=== PATIENT | female | born 1955 | race Caucasian/White ===

== ENCOUNTER 2016-08-15 14:33 | Emergency (ER) | payer OTHER ==
[~2016-08-15] VITALS: Ht 156.2 cm; Wt 72.9 kg
[2016-08-15 14:36] VITALS: TEMP 36.9; Ht 156.2 cm; Wt 72.9 kg
[2016-08-15] MEDS ORDERED: MECLIZINE HCL 25 MG TAB PO STA (14:44)
[2016-08-15] MEDS ORDERED: SODIUM CHLORIDE 0.9% 1000ML 1,000 ML IV STA (14:44)
[2016-08-15] MEDS ORDERED: ATV/1 PO (15:10)
[2016-08-15] MEDS ORDERED: MULT-513 PO (15:10)
[2016-08-15] MEDS ORDERED: NAPR1TAB9 PO (15:10)
[2016-08-15 15:13] LABS: BASO % 0.3 %; BASO ABS # 0.02 K/uL (0-0.2); COMPLETE YES; EOS % 4.3 %; HEMATOCRIT 42.2 % (37-47); IG% 0.2 %; LYMPH % 37.8 %; LYMPH ABS # 2.29 K/uL (1.2-3.4); MEAN CORPUSCULAR HEMOGLOBIN 34.5 pg (25-34); MEAN CORPUSCULAR HGB CONC 35.5 g/dl (32-36); MEAN PLATELET VOLUME 9.4 fL (7.4-10.4); MONO % 7.1 %; NEUT % 50.3 %; PLATELET COUNT 226 K/uL (130-400); RED BLOOD COUNT 4.35 M/uL (4.2-5.4); WHITE BLOOD COUNT 6.06 K/uL (4.8-10.8)
--- NOTE | 2016-08-15 15:14 | DIAGNOSTIC IMAGING REPORT ---
CHEST ONE VIEW PORTABLE CLINICAL HISTORY: Altered mental status. Weakness. COMPARISON STUDY: Chest radiograph September 27, 2012. FINDINGS: Lung volumes are normal. There is no consolidation to suggest pneumonia. Mild left basilar opacity is suggestive of atelectasis. There is no evidence of pulmonary edema. Cardiomediastinal silhouette is normal. IMPRESSION: No acute cardiopulmonary findings. Electronically signed by: Darvin Rodríguez M.D. 08/15/2016 3:12 PM Dictated Date/Time: 08/15/2016 3:11 PM
[2016-08-15 15:20] LABS: URINE APPEARANCE CLEAR (CLEAR); URINE BILIRUBIN NEG (NEG); URINE COLOR YELLOW; URINE EPITHELIAL CELL AUTO 0-5 /lpf (0-5); URINE NITRITE NEG (NEG); URINE PH 7.5 (4.5-7.5); URINE SPECIFIC GRAVITY 1.004 (1.000-1.030); UROBILINOGEN NEG (NEG); ZZUR CULT IF INDIC CLEAN CATCH NO
--- NOTE | 2016-08-15 15:23 | DIAGNOSTIC IMAGING REPORT ---
CT OF THE HEAD WITHOUT CONTRAST CLINICAL HISTORY: Altered mental status. Weakness. Dizziness. COMPARISON STUDY: Head CT September 06, 2013 and MRI of the brain December 08, 2007. CT DOSE: 537.48 mGy.cm TECHNIQUE: Helical axial images of the head were obtained without IV contrast. Automated exposure control was utilized for the study. FINDINGS: No acute intracranial hemorrhage, midline shift or mass effect is present. Ventricular system is normal. The basilar cisterns are patent. No extra-axial collections are present. Scattered white matter hypodensities are probably old. There are no findings to suggest acute dural sinus thrombosis or acute territorial infarct. There is minimal mucosal thickening of the ethmoid sinuses. Mastoid air cells are clear. There are no calvarial abnormalities. IMPRESSION: 1. No acute intracranial hemorrhage or mass effect. 2. Scattered nonspecific white matter hypodensities. The majority of these were present on prior exams. A few of these are age-indeterminate but likely old. Electronically signed by: Darvin Rodríguez M.D. 08/15/2016 3:21 PM Dictated Date/Time: 08/15/2016 3:15 PM
[2016-08-15 15:24] LABS: MANUAL MICROSCOPIC REQUIRED? NO; REVIEW REQ? NO
[2016-08-15 15:32] LABS: ALT/SGPT 22 U/L (12-78); AST/SGOT 17 U/L (15-37); BLOOD UREA NITROGEN 14 mg/dl (7-18); BUN/CREATININE RATIO 17.8 (10-20); CALCIUM 8.9 mg/dl (8.5-10.1); CARBON DIOXIDE 27 mmol/L (21-32); CHLORIDE 111 mmol/L (98-107); CREATININE 0.76 mg/dl (0.60-1.20); GLUCOSE 108 mg/dl (70-99); MAGNESIUM 2.3 mg/dl (1.8-2.4); POTASSIUM 3.7 mmol/L (3.5-5.1); SODIUM 145 mmol/L (136-145)
[2016-08-15 15:33] LABS: PROTHROMBIN TIME (PATIENT) 10.6 SECONDS (9.0-12.0)
[2016-08-15 15:40] LABS: ALKALINE PHOSPHATASE 75 U/L (45-117); CKMB/CK RATIO 1.9 (0-3.0)
--- NOTE | 2016-08-15 16:35 | DIAGNOSTIC IMAGING REPORT ---
CAROTID ARTERY ULTRASOUND CLINICAL HISTORY: Dizziness. COMPARISON STUDY: Carotid ultrasound December 08, 2007 and CTA of the neck September 06, 2013. TECHNIQUE: Real-time, grayscale, and color Doppler sonography of the carotid and vertebral arteries was performed. Images were viewed in the transverse and longitudinal planes. FINDINGS: There is minimal atherosclerotic plaque. Velocity measurements are listed below. COMMON CAROTID PEAK SYSTOLIC VELOCITY (CM/S): RIGHT 112 LEFT 118 ICA PEAK SYSTOLIC VELOCITY (CM/S): RIGHT 64 LEFT 57 The systolic ratios between the internal to common carotid arteries were normal. Antegrade flow is seen in the vertebral arteries. The external carotid arteries are patent. Blood pressure in the right arm measured 154/84. Blood pressure in the left arm measured 159/83. Incidental note was made of a few cystic benign-appearing right lobe thyroid nodules. IMPRESSION: No evidence of a hemodynamically significant stenosis. Electronically signed by: Darvin Rodríguez M.D. 08/15/2016 4:33 PM Dictated Date/Time: 08/15/2016 4:31 PM
--- NOTE | 2016-08-15 16:53 | EMERGENCY ROOM VISIT NOTE ---
History Report prepared by Mariah: Rica Pink Under the Supervision of: Dr. Kirit Cruz D.O. First contact with patient: 14:39 Chief Complaint: DIZZY Stated Complaint: DIZZY, BALANCE History of Present Illness The patient is a 60 year old female who presents to the Emergency Room with complaints of intermittent episodes of dizziness over the past 2 weeks. The patient notes that she has been feeling dizzy with sudden movements and position changes. This morning, her dizziness seemed to worsen when she sat up from bed. She describes the dizziness as a room spinning sensation. When she looked and reached up to water a plant, she felt as if she was going to pass out because she was so dizzy. She did not lose consciousness. Upon arrival she also complains of an occasional dull headache. She tried using Aleve and a sinus headache medication for her headache but has not taken anything for her dizziness. She has been eating and drinking well. She denies recent illnesses or trauma. She does not have any known contacts with similar symptoms. Denies nausea, vomiting, weakness, or other complaints. Source of History: patient Onset: 2 weeks CHIEF [employer] Position: other (Global) Quality: other (room spinning) Timing: intermittent Modifying Factors (Worsening): movement, other (position changes) Associated Symptoms: + headache (occasional, dull), No LOC, No nausea, No vomiting, No weakness Review of Systems See HPI for pertinent positives & negatives. A total of 10 systems reviewed and were otherwise negative. Past Medical & Surgical Medical Problems: (1) Anxiety disorder (2) Bilateral tubal ligation (3) History of cholecystectomy (4) Moderate recurrent major depression (5) Tonsillectomy Surgical Problems: (1) Hx of cholecystectomy (2) Hx of foot surgery Family History Diabetes mellitus FHx: cancer FHx: gallbladder disease Social History Smoking Status: Never Smoker Alcohol Use: occasionally Drug Use: none Occupation Status: employed Current/Historical Medications Scheduled Multivitamins/Minerals (Mvi With Minerals), 1 TAB PO DAILY Naproxen (Aleve), 220 MG PO PRN UD Scheduled PRN Lorazepam (Ativan), 1 MG PO TID PRN for Anxiety Meclizine Hcl (Meclizine Hcl), 1 TAB PO TID PRN for Dizziness or Vertigo Allergies Coded Allergies: Cantaloupe (Verified Allergy, Unknown, 10/27/15) Erythromycin (Verified Allergy, Unknown, 10/27/15) Penicillins (Verified Allergy, Unknown, 10/27/15) Physical Exam Vital Signs Date Time Temp Pulse Resp B/P Pulse Ox O2 Delivery O2 Flow Rate FiO2 08/15/16 16:20 74 20 173/86 98 Room Air 08/15/16 14:57 81 08/15/16 14:36 36.9 90 18 196/102 98 Room Air Physical Exam VITAL SIGNS: were reviewed as above. GENERAL:Non-toxic in appearance. SKIN: Warm dry and pink. HEAD: Normocephalic and atraumatic. OROPHARYNX: Is clear and moist NECK: Supple without lymphadenopathy or meningismus. LUNGS: clear. HEART: Regular rate and rhythm. ABDOMEN: Soft and nontender. EXTREMITIES: Warm and well perfused. NEUROLOGICALLY: Awake alert and oriented without focal deficit. Cranial nerves 2 -12 are intact. There is no pronator drift. Cerebellar testing is within normal limits. There is no nystagmus. There is no facial droop. Speech is clear. Vision is grossly normal. MUSCULOSKELETAL: Good muscle tone. No evidence of trauma. Medical Decision & Procedures ER Provider Diagnostic Interpretation: X ray results and stated below per my interpretation and radiologist interpretation. Other radiology results and stated below per my review and radiologist interpretation: CT OF THE HEAD WITHOUT CONTRAST CLINICAL HISTORY: Altered mental status. Weakness. Dizziness. COMPARISON STUDY: Head CT September 06, 2013 and MRI of the brain December 08, 2007. CT DOSE: 537.48 mGy.cm TECHNIQUE: Helical axial images of the head were obtained without IV contrast. Automated exposure control was utilized for the study. FINDINGS: No acute intracranial hemorrhage, midline shift or mass effect is present. Ventricular system is normal. The basilar cisterns are patent. No extra-axial collections are present. Scattered white matter hypodensities are probably old. There are no findings to suggest acute dural sinus thrombosis or acute territorial infarct. There is minimal mucosal thickening of the ethmoid sinuses. Mastoid air cells are clear. There are no calvarial abnormalities. IMPRESSION: 1. No acute intracranial hemorrhage or mass effect. 2. Scattered nonspecific white matter hypodensities. The majority of these were present on prior exams. A few of these are age-indeterminate but likely old. Electronically signed by: Darvin Rodríguez M.D. 08/15/2016 3:21 PM Dictated Date/Time: 08/15/2016 3:15 PM CHEST ONE VIEW PORTABLE CLINICAL HISTORY: Altered mental status. Weakness. COMPARISON STUDY: Chest radiograph September 27, 2012. FINDINGS: Lung volumes are normal. There is no consolidation to suggest pneumonia. Mild left basilar opacity is suggestive of atelectasis. There is no evidence of pulmonary edema. Cardiomediastinal silhouette is normal. IMPRESSION: No acute cardiopulmonary findings. Electronically signed by: Darvin Rodríguez M.D. 08/15/2016 3:12 PM Dictated Date/Time: 08/15/2016 3:11 PM CAROTID ARTERY ULTRASOUND CLINICAL HISTORY: Dizziness. COMPARISON STUDY: Carotid ultrasound December 08, 2007 and CTA of the neck September 06, 2013. TECHNIQUE: Real-time, grayscale, and color Doppler sonography of the carotid and vertebral arteries was performed. Images were viewed in the transverse and longitudinal planes. FINDINGS: There is minimal atherosclerotic plaque. Velocity measurements are listed below. COMMON CAROTID PEAK SYSTOLIC VELOCITY (CM/S): RIGHT 112 LEFT 118 ICA PEAK SYSTOLIC VELOCITY (CM/S): RIGHT 64 LEFT 57 The systolic ratios between the internal to common carotid arteries were normal. Antegrade flow is seen in the vertebral arteries. The external carotid arteries are patent. Blood pressure in the right arm measured 154/84. Blood pressure in the left arm measured 159/83. Incidental note was made of a few cystic benign-appearing right lobe thyroid nodules. IMPRESSION: No evidence of a hemodynamically significant stenosis. Electronically signed by: Darvin Rodríguez M.D. 08/15/2016 4:33 PM Dictated Date/Time: 08/15/2016 4:31 PM Laboratory Results 08/15/16 15:01 Red Blood Count 4.35, Mean Corpuscular Volume 97.0, Mean Corpuscular Hemoglobin 34.5, Mean Corpuscular Hemoglobin Concent 35.5, Mean Platelet Volume 9.4, Neutrophils (%) (Auto) 50.3, Lymphocytes (%) (Auto) 37.8, Monocytes (%) (Auto) 7.1, Eosinophils (%) (Auto) 4.3, Basophils (%) (Auto) 0.3, Neutrophils # (Auto) 3.05, Lymphocytes # (Auto) 2.29, Monocytes # (Auto) 0.43, Eosinophils # (Auto) 0.26, Basophils # (Auto) 0.02 1/21/17 15:01 Test 08/15/16 14:52 08/15/16 15:01 Urine Color YELLOW Urine Appearance CLEAR (CLEAR) Urine pH 7.5 (4.5-7.5) Urine Specific [place] 1.004 (1.000-1.030) Urine Protein NEG (NEG) Urine Glucose (UA) NEG (NEG) Urine Ketones NEG (NEG) Urine Occult Blood NEG (NEG) Urine Nitrite NEG (NEG) Urine Bilirubin NEG (NEG) Urine Urobilinogen NEG (NEG) Urine Leukocyte Esterase TRACE (NEG) Urine WBC (Auto) 1-5 /hpf (0-5) Urine RBC (Auto) 0-4 /hpf (0-4) Urine Hyaline Casts (Auto) 0 /lpf (0-5) Urine Epithelial Cells (Auto) 0-5 /lpf (0-5) Urine Bacteria (Auto) NEG (NEG) White Blood Count 6.06 K/uL (4.8-10.8) Red Blood Count 4.35 M/uL (4.2-5.4) Hemoglobin 15.0 g/dL (12.0-16.0) Hematocrit 42.2 % (37-47) Mean Corpuscular Volume 97.0 fL (80-100) Mean Corpuscular Hemoglobin 34.5 pg (25-34) Mean Corpuscular Hemoglobin Concent 35.5 g/dl (32-36) Platelet Count 226 K/uL (130-400) Mean Platelet Volume 9.4 fL (7.4-10.4) Neutrophils (%) (Auto) 50.3 % Lymphocytes (%) (Auto) 37.8 % Monocytes (%) (Auto) 7.1 % Eosinophils (%) (Auto) 4.3 % Basophils (%) (Auto) 0.3 % Neutrophils # (Auto) 3.05 K/uL (1.4-6.5) Lymphocytes # (Auto) 2.29 K/uL (1.2-3.4) Monocytes # (Auto) 0.43 K/uL (0.11-0.59) Eosinophils # (Auto) 0.26 K/uL (0-0.5) Basophils # (Auto) 0.02 K/uL (0-0.2) RDW Standard Deviation 44.9 fL (36.4-46.3) RDW Coefficient of Variation 12.6 % (11.5-14.5) Immature Granulocyte % (Auto) 0.2 % Immature Granulocyte # (Auto) 0.01 K/uL (0.00-0.02) Erythrocyte Sedimentation Rate 6 mm/hr (0-21) Prothrombin Time 10.6 SECONDS (9.0-12.0) Prothromb Time International Ratio 1.0 (0.9-1.1) Activated Partial Thromboplast Time 25.3 SECONDS (21.0-31.0) Partial Thromboplastin Ratio 1.0 Anion Gap 7.0 mmol/L (3-11) Est Creatinine Clear Calc Drug Dose 71.8 ml/min Estimated GFR () 98.1 Estimated GFR (Non- 84.7 BUN/Creatinine Ratio 17.8 (10-20) Calcium Level 8.9 mg/dl (8.5-10.1) Magnesium Level 2.3 mg/dl (1.8-2.4) Total Bilirubin 0.4 mg/dl (0.2-1) Direct Bilirubin < 0.1 mg/dl (0-0.2) Aspartate Amino Transf (AST/SGOT) 17 U/L (15-37) Alanine Aminotransferase (ALT/SGPT) 22 U/L (12-78) Alkaline Phosphatase 75 U/L (45-117) Total Creatine Kinase 85 U/L (26-192) Creatine Kinase MB 1.6 ng/ml (0.5-3.6) Creatine Kinase MB Ratio 1.9 (0-3.0) Troponin I < 0.015 ng/ml (0-0.045) Total Protein 7.3 gm/dl (6.4-8.2) Albumin 3.8 gm/dl (3.4-5.0) Lipase 172 U/L (73-393) Thyroid Stimulating Hormone (TSH) 1.530 uIu/ml (0.300-4.500) Laboratory results as stated above per my review. Medications Administered Medications (Trade) Dose Ordered Sig/Lynda Route Start Time Stop Time Status Last Admin Dose Admin Sodium Chloride (Nss 1000ml) 1,000 ml @ 999 mls/hr Q1H1M STAT IV 08/15/16 14:44 08/15/16 15:44 DC 08/15/16 15:02 999 MLS/HR Meclizine HCl (Antivert Tab) 25 mg NOW STAT PO 08/15/16 14:44 08/15/16 14:46 DC 08/15/16 15:02 25 MG ECG Indication: other (dizzy) Rate (beats per minute): 75 Rhythm: normal sinus Findings: no ectopy, other (no acute injury) ED Course 1439: The patient was evaluated in room A2. A complete history and physical examination was performed. 1444: Ordered Meclizine HCl 25 mg PO, NSS 1000 ml @ 999 mls/hr IV. 1654: On reevaluation, the patient is feeling somewhat better. I discussed the results and findings with the patient. She verbalized agreement of the treatment plan. The patient was discharged home. Medical Decision Differential diagnosis: Etiologies such as benign positional vertigo, dehydration, hypovolemia, anemia, tumor, infection, hypoglycemia, electrolyte abnormalities, cardiac sources, intracerebral event, toxicologic, neurologic, as well as others were entertained. This is a 60-year-old female who presents to the ED with a chief complaint of dizziness. The patient reports that her symptoms have been ongoing for the past couple weeks. Her symptoms seem to be worse with sudden movements of the head. She states that this morning she sat up in bed and after sitting up the room began spinning. She also states that the room spins worse if she looks upward. The patient states she feels a little disoriented. She denies any nausea vomiting or recent illness. No trauma. Her neurological exam was completely normal. There is no nystagmus. Symptoms are somewhat reproduce with any head movement. Chest x-ray was negative for acute disease. A CT scan of brain did not show any acute disease. There is age-related changes. CBC is normal. Sedimentation rate is 6. Urine did not show infection. Chest x-ray did not show any acute disease. Urine did not show infection. Complete metabolic panel was unremarkable. Ultrasound of the carotid arteries did not show any significant abnormality. The patient was told the results. She was treated with IV fluids and by mouth meclizine. She was able to get to the bathroom. She was still a little symptomatically did improve some with this. She will be discharged on meclizine. She is to follow-up with her PCP for recheck and further evaluation. Impression Primary Impression: Dizziness Scribe Attestation The scribe's documentation has been prepared under my direction and personally reviewed by me in its entirety. I confirm that the note above accurately reflects all work, treatment, procedures, and medical decision making performed by me. Departure Information Dispostion Home / Self-Care Prescriptions Meclizine Hcl (MECLIZINE HCL) 25 Mg Tab 1 TAB PO TID Y for Dizziness or Vertigo for 10 Days, #30 TAB Prov: Kirit Cruz D.O. 08/15/16 Referrals Anuel Guzman M.D. (PCP) Patient Instructions My [facility] Additional Instructions Follow-up with your doctor for recheck this coming week. Turn for worsening or new concerns. Meclizine as needed for dizziness. Neurology follow-up may be beneficial if symptoms persist.
[2016-08-15] MEDS ORDERED: MECL1TAB42 PO (16:54)
[2016-08-15 17:12] VITALS: BP 173/86; PULSE 76; O2SAT 96
[2017-01-18] MEDS ORDERED: DVN80125 PO (13:50)
[2017-01-18] MEDS ORDERED: BUPR150T7 PO (13:50)
== END 2016-08-15 17:14 | disposition home or self-care (01) ==
LOC: C.EDB 14:34 → C.EDA 17:14
DX: R42 Dizziness and giddiness (principal); F41.9 Anxiety disorder, unspecified; F32.9 Major depressive disorder, single episode, unspecified; Z98.51 Tubal ligation status; Z90.49 Acquired absence of other specified parts of digestive tract; Z98.890 Other specified postprocedural states; Z88.0 Allergy status to penicillin; Z88.3 Allergy status to other anti-infective agents; Z91.018 Allergy to other foods; Z83.3 Family history of diabetes mellitus; Z80.9 Family history of malignant neoplasm, unspecified; Z83.79 Family history of other diseases of the digestive system

== ENCOUNTER → 2016-08-20 | Outpatient (CLI) | payer OTHER ==
[~2016-08-20] MED LIST: ATV/1 PO; BUPR150T7 PO; DVN80125 PO; MECL1TAB42 PO; MULT-513 PO; NAPR1TAB9 PO
[2016-08-20 12:45] LABS: BLOOD UREA NITROGEN 15 mg/dl (7-18); BUN/CREATININE RATIO 17.8 (10-20); CALCIUM 9.1 mg/dl (8.5-10.1); CARBON DIOXIDE 25 mmol/L (21-32); CHLORIDE 110 mmol/L (98-107); CREATININE 0.86 mg/dl (0.60-1.20); GLUCOSE 84 mg/dl (70-99); POTASSIUM 4.2 mmol/L (3.5-5.1); SODIUM 143 mmol/L (136-145)
== END | disposition home or self-care (01) ==
LOC: C.LABBFT 07:55
PROVIDERS: ATTEND Nurse Practitioner
DX: Z20.5 Contact with and (suspected) exposure to viral hepatitis (principal); I10 Essential (primary) hypertension

== ENCOUNTER → 2016-10-07 | Outpatient (CLI) | payer OTHER ==
[~2016-10-07] MED LIST changes: -MECL1TAB42 PO
--- NOTE | 2016-10-08 12:39 | MAMMOGRAPHY REPORT ---
BILATERAL DIGITAL SCREENING MAMMOGRAM TOMOSYNTHESIS WITH CAD: 10/07/2016 CLINICAL HISTORY: Routine screening. Patient has no complaints. TECHNIQUE: Breast tomosynthesis in addition to standard 2D mammography was performed. Current study was also evaluated with a Computer Aided Detection (CAD) system. COMPARISON: Comparison is made to exams dated: 09/25/2015 mammogram, 04/20/2012 mammogram, 09/19/2014 m ammogram, 03/27/2011 mammogram, and 03/26/2010 mammogram - [facility]. BREAST COMPOSITION: There are scattered areas of fibroglandular density in both breasts. FINDINGS: No suspicious masses, calcifications, or areas of architectural distortion are noted in e ither breast. There has been no significant interval change compared to prior exams. A linear scar marker denotes a scar on the right anterior breast. Benign-appearing mass in the left lower inner q uadrant is stable dating back to at least the 2008 exam. Small benign-appearing mass in the right m edial breast at approximately 3:00 is stable compared to prior exams including the 09/19/2014 exam an d likely also the 2011 exam, and considered benign given long-term stability. IMPRESSION: ACR BI-RADS CATEGORY 2: BENIGN There is no mammographic evidence of malignancy. A 1 year screening mammogram is recommended. The p atient will receive written notification of the results. Approximately 10% of breast cancers are not detected with mammography. A negative mammographic repor t should not delay biopsy if a clinically suggestive mass is present. Zahida Foster M.D. ah/:10/08/2016 07:48:26 Catering Truck Driver: Sherie RAMOS(Yen)(M), [facility] letter sent: Normal 1/2 BI-RADS Code: ACR BI-RADS Category 2: Benign
== END | disposition home or self-care (01) ==
LOC: C.MAMM 17:01
PROVIDERS: ATTEND Internal Medicine
DX: Z12.31 Encounter for screening mammogram for malignant neoplasm of breast (principal)

== ENCOUNTER → 2017-01-25 | Day surgery (SDC) | payer OTHER ==
[2017-01-18 13:50] VITALS: Ht 156.2 cm; Wt 65.9 kg
[~2017-01-25] VITALS: Ht 156.2 cm; Wt 65.9 kg
[~2017-01-25] MED LIST changes: +LIDOCAINE HCL 2% 2 ML VIAL (20MG/ML) ONE; -MULT-513 PO; -NAPR1TAB9 PO; +PROPOFOL IV EMULSION 10 MG/ML 20 ML VIAL IV ONE; +SODIUM CHLORIDE 0.9% 500ML 500 ML IV ONE
--- NOTE | 2017-01-25 14:56 | Endo History and Physical ---
History & Physical Date of Service: Jan 25, 2017. Chief Complaint: Colon screening Referring Physician: Dr. Anuel Guzman History of Present Illness 61 yo CF who presents for screening colonoscopy. Past Surgical History Hx Cardiac Surgery: No Hx Internal Defibrillator: No Hx Pacemaker: No Hx Abdominal Surgery: Yes (BALTAZAR) Hx of Implantable Prosthesis: No Hx Post-Op Nausea and Vomiting: No Hx Cancer Surgery: No Hx Thoracic Surgery: No Hx Orthopedic: Yes (FOOT SURGERY) Hx Urinary Tract Surgery: No Family History None Social History Smoking Status: Never Smoker Hx Substance Use: No Hx Alcohol Use: Yes (RARE) Allergies Coded Allergies: Erythromycin (Verified Allergy, Mild, RASH, 01/18/17) Penicillins (Verified Allergy, Mild, RASH, 01/18/17) Cantaloupe (Verified Allergy, Unknown, THROAT SWELLING, 01/18/17) Current Medications Reported Home Medications Medications Dose Route/Sig Max Daily Dose Days Date Category Dose Instructions Diovan Hct (Valsartan/Hctz) 1 Tab Tab 1 Tab PO QAM 01/18/17 Reported 80/12.5 Wellbutrin Sr (Bupropion Hcl) 150 Mg Tab 150 Mg PO QAM 01/18/17 Reported Ativan (Lorazepam) 1 Mg Tab 1 Mg PO TID PRN 08/15/16 Reported Vital Signs Weight (Kilograms): 65.91 Height (Feet): 5 Height (Inches): 1.5 Date Time Temp Pulse Resp B/P (MAP) Pulse Ox O2 Delivery O2 Flow Rate FiO2 01/25/17 14:49 37.2 72 18 149/93 (111) 97 Room Air Physical Exam General Appearance: WD/WN, no apparent distress Respiratory/Chest: Auscultation: breath sounds normal Cardiovascular: Heart Auscultation: RRR Abdomen: Bowel Sounds: normal Inspection & Palpation: soft, non-distended, no tenderness, guarding & rebound Assessment and Plan Assessment: 61 yo CF who presents for screening colonoscopy. Plan: Proceed with colonoscopy.
--- NOTE | 2017-01-25 15:24 | Discharge Instructions ---
Endoscopy Patient Instructions Date / Procedure(s) Performed Jan 25, 2017. Colonoscopy Allergy Information Coded Allergies: Erythromycin (Verified Allergy, Mild, RASH, 01/18/17) Penicillins (Verified Allergy, Mild, RASH, 01/18/17) Cantaloupe (Verified Allergy, Unknown, THROAT SWELLING, 01/18/17) Discharge Date / Findings Jan 25, 2017. Diverticulosis Internal hemorrhoids Medication Instructions OK to resume all medications today as prescribed Reported Home Medications Medications Dose Route/Sig Max Daily Dose Days Date Category Dose Instructions Diovan Hct (Valsartan/Hctz) 1 Tab Tab 1 Tab PO QAM 01/18/17 Reported 80/12.5 Wellbutrin Sr (Bupropion Hcl) 150 Mg Tab 150 Mg PO QAM 01/18/17 Reported Ativan (Lorazepam) 1 Mg Tab 1 Mg PO TID PRN 08/15/16 Reported Provider Instructions Activity Restrictions - No exercising or heavy lifting for 24 hours. - Do not drink alcohol the day of the procedure. - Do not drive a car or operate machinery until the day after the procedure. - Do not make any important decisions or sign important papers in 24 hours after the procedure. Following Day: - Return to full activity which may include returning to work/school. Diet Start your diet with liquids and light foods (jello, soup, juice, toast). Then eat your usual diet if not nauseated. Treatment For Common After Affects For mild abdominal pain, bloating, or excessive gas: - Rest - Eat lightly - Lie on right side Follow-Up Information Follow-up with Dr. Anuel Guzman as scheduled Anesthesia Information What You Should Know You have had a procedure that required some medicine to reduce anxiety and discomfort. This treatment is called moderate sedation. After receiving the treatment, you may be sleepy, but you will be able to breathe on your own. The effects of the treatment may last for several hours. Follow these instructions along with Activity/Diet recommendations noted above: * Do NOT do anything where dizziness or clumsiness would be dangerous. * Rest quietly at home today, then you can be up and about tomorrow. * Have a responsible person stay with you the rest of today. * You may have had an I.V. today. If so, you may take the dressing off later today. Recommendations Call your doctor if: * Trouble breathing * Continuous vomiting for more than 24 hours * Temperature above 101 degrees * Severe abdominal pain or bloating * Pain not relieved by pain medicine ordered * There is increased drainage or redness from any incision * A large amount of rectal bleeding greater than 2-3 tablespoons. (If you had a polyp/s removed or have hemorrhoids, a small amount of blood - from the rectum is to be expected.) * You have any unanswered questions or concerns. IN THE EVENT OF A SERIOUS EMERGENCY, GO TO THE NEAREST EMERGENCY ROOM Your discharge instructions were prepared by provider Wesley Brantley. Patient Instructions Signature Page Miriam Arthur Patient (or Guardian) Signature/Date: I have read and understand the instructions given to me by my caregivers. Caregiver/RN/Doctor Signature/Date: The above-named patient and/or guardian has received patient instructions on this date. + Original Patient Signature Page (only) stays with chart. Please make copy for patient.
--- NOTE | 2017-01-25 15:31 | GI REPORT ---
Procedure Date: 01/25/2017 3:07 PM THIS REPORT HAS BEEN AMENDED Addendum Number: 1 Addendum Date: 02/01/2017 4:31:58 PM No specimens were collected during this exam, and therefore, no pathology is pending. Repeat colonoscopy in 10 years. Procedure: Colonoscopy Indications: Screening for colorectal malignant neoplasm Medicines: Monitored Anesthesia Care Complications: No immediate complications. Estimated Blood Loss: Estimated blood loss: none. Procedure: Pre-Anesthesia Assessment: - Prior to the procedure, a History and Physical was performed, and patient medications and allergies were reviewed. The patient's tolerance of previous anesthesia was also reviewed. The risks and benefits of the procedure and the sedation options and risks were discussed with the patient. All questions were answered, and informed consent was obtained. Prior Anticoagulants: The patient has taken no previous anticoagulant or antiplatelet agents. ASA Grade Assessment: II - A patient with mild systemic disease. After reviewing the risks and benefits, the patient was deemed in satisfactory condition to undergo the procedure. After I obtained informed consent, the scope was passed under direct vision. Throughout the procedure, the patient's blood pressure, pulse, and oxygen saturations were monitored continuously. The scope was introduced through the anus and advanced to the terminal ileum. The colonoscopy was performed without difficulty. The patient tolerated the procedure well. The quality of the bowel preparation was good. The terminal ileum, ileocecal valve, appendiceal orifice, and rectum were photographed. Findings: Multiple small-mouthed diverticula were found in the sigmoid colon. Non-bleeding internal hemorrhoids were found during retroflexion. Impression: - Diverticulosis in the sigmoid colon. - Non-bleeding internal hemorrhoids. - No specimens collected. Recommendation: - Resume previous diet. - Continue present medications. - Repeat colonoscopy for surveillance based on pathology results. - Return to primary care physician as previously scheduled. Wesley Sunday Brantley, 01/25/2017 3:30:38 PM This report has been signed electronically. Note Initiated On: 01/25/2017 3:07 PM I attest to the content of the Intraoperative Record and orders documented therein, exceptions below Wesley LloydPriscila Brantley, DO 02/01/2017 4:32:27 PM This report has been signed electronically.
--- NOTE | 2017-01-25 15:40 | Anesthesiology Progress Note ---
Anesthesia Post Op Note Date & Time Jan 25, 2017 at 15:40 Vital Signs Pain Intensity: 0 Vital Signs Past 12 Hours Date Time Temp Pulse Resp B/P (MAP) Pulse Ox O2 Delivery O2 Flow Rate FiO2 01/25/17 15:29 78 20 125/63 (83) 97 Room Air 01/25/17 14:49 37.2 72 18 149/93 (111) 97 Room Air Notes Mental Status: alert / awake / arousable, participated in evaluation Pt Amnestic to Procedure: Yes Nausea / Vomiting: adequately controlled Pain: adequately controlled Airway Patency, RR, SpO2: stable & adequate BP & HR: stable & adequate Hydration State: stable & adequate Anesthetic Complications: no major complications apparent
[2017-01-25 15:44] VITALS: BP 148/86; PULSE 65; O2SAT 95
== END | disposition home or self-care (01) ==
LOC: C.GI 13:40
PROVIDERS: ATTEND Internal Medicine
DX: Z12.11 Encounter for screening for malignant neoplasm of colon (principal); K57.30 Diverticulosis of large intestine without perforation or abscess without bleeding; K64.8 Other hemorrhoids; Z90.49 Acquired absence of other specified parts of digestive tract

== ENCOUNTER 2017-07-09 00:26 | Emergency (ER) | payer OTHER ==
[~2017-07-09] VITALS: Ht 154.9 cm; Wt 70.4 kg
[~2017-07-09 00:26] MED LIST changes: -LIDOCAINE HCL 2% 2 ML VIAL (20MG/ML) ONE; -PROPOFOL IV EMULSION 10 MG/ML 20 ML VIAL IV ONE; -SODIUM CHLORIDE 0.9% 500ML 500 ML IV ONE
[2017-07-09 00:31] VITALS: TEMP 36.4; Ht 154.9 cm; Wt 70.4 kg
[2017-07-09] MEDS ORDERED: ONDANSETRON 8 MG/54 ML D5W IV STA (00:49)
[2017-07-09] MEDS ORDERED: SODIUM CHLORIDE 0.9% 1000ML 1,000 ML IV STA (00:49)
--- NOTE | 2017-07-09 00:55 | EMERGENCY ROOM VISIT NOTE ---
History Report prepared by Mariah: Archana Mooney Under the Supervision of: Dr. Shira Ahn D.O. First contact with patient: 00:34 Chief Complaint: HEMATURIA Stated Complaint: PAIN IN ABDOMEN Nursing Triage Summary: Patient with c/o lower abdominal pain/ pressure and hematuria since yesterday. Patient also c/o bilateral lower back pain. History of Present Illness The patient is a 61 year old female who presents to the Emergency Room with complaints of persistent urinary symptoms starting yesterday. She started having pressure in her abdomen yesterday. She has had urinary frequency, pain with urination, and lower back pain. She has had UTI in the past, but her symptoms have never been this severe. She has noticed blood in her urine. She is nauseous and has had chills. She denies any fever, vaginal discharge, vaginal bleeding, or change in bowel movements. She denies any history of kidney infection, kidney failure, or kidney stones. She has been trying to drink fluids. Source of History: patient Onset: yesterday Position: other (global) Quality: other (urinary symptoms) Timing: other (persistent) Associated Symptoms: + chills, + nausea, + abdominal pain, + back pain, No fevers Note: Pt denies vaginal discharge/bleeding, change in bowel movement. Review of Systems See HPI for pertinent positives & negatives. A total of 10 systems reviewed and were otherwise negative. Past Medical & Surgical Medical Problems: (1) Anxiety disorder (2) Bilateral tubal ligation (3) History of cholecystectomy (4) Moderate recurrent major depression (5) Tonsillectomy Surgical Problems: (1) Hx of cholecystectomy (2) Hx of foot surgery Family History Diabetes mellitus FHx: cancer FHx: gallbladder disease Social History Smoking Status: Never Smoker Alcohol Use: occasionally Drug Use: none Marital Status: Occupation Status: employed Current/Historical Medications Scheduled Bupropion (Wellbutrin Sr), 300 MG PO DAILY Sulfa/Trimethoprim (Bactrim Ds 800MG/160MG), 1 TAB PO BID Valsartan/Hctz (Diovan Hct), 1 TAB PO QAM Scheduled PRN Lorazepam (Ativan), 1 MG PO TID PRN for Anxiety Allergies Coded Allergies: Erythromycin (Verified Allergy, Mild, RASH, 01/18/17) Penicillins (Verified Allergy, Mild, RASH, 01/18/17) Cantaloupe (Verified Allergy, Unknown, THROAT SWELLING, 01/18/17) Physical Exam Vital Signs Date Time Temp Pulse Resp B/P (MAP) Pulse Ox O2 Delivery O2 Flow Rate FiO2 07/09/17 03:21 80 18 151/83 100 Room Air 07/09/17 02:29 84 16 124/66 96 Room Air 07/09/17 00:31 36.4 90 16 158/89 97 Room Air Physical Exam GENERAL: alert, uncomfortable appearing, well nourished, no distress, non-toxic EYE EXAM: normal conjunctiva, PERRL and EOM's grossly intact OROPHARYNX: no exudate, no erythema, lips, buccal mucosa, and tongue normal and mucous membranes are moist NECK: supple, no nuchal rigidity, no adenopathy, non-tender LUNGS: Clear to auscultation. Normal chest wall mechanics HEART: no murmurs, S1 normal and S2 normal ABDOMEN: abdomen soft, suprapubic tenderness, normo-active bowel sounds, no masses, no rebound or guarding. BACK: Back is symmetrical on inspection and there is no deformity, no midline tenderness, mild bilateral CVA tenderness, reproducible low back pain. SKIN: no rashes and no bruising UPPER EXTREMITIES: upper extremities are grossly normal. LOWER EXTREMITIES: No pitting edema. NEURO EXAM: Normal sensorium, cranial nerves II-XII grossly intact, normal speech, no gross weakness of arms, no gross weakness of legs. Medical Decision & Procedures ER Provider Diagnostic Interpretation: Radiology results have been interpreted by the [facility] radiologist and reviewed by me. CT Abdomen & Pelvis with Contrast: Gallbladder is surgically absent. Liver, spleen, pancreas and adrenal glands are unremarkable. Cortical and parapelvic cysts are noted within both kidneys. No hydronephrosis. Uterus and adnexa are unremarkable. Appendix is unremarkable. Bowel is unremarkable. No free fluid. No free air. No acute osseous abnormality. Laboratory Results 07/09/17 01:00 Red Blood Count 4.23, Mean Corpuscular Volume 98.1, Mean Corpuscular Hemoglobin 34.3, Mean Corpuscular Hemoglobin Concent 34.9, Mean Platelet Volume 9.0, Neutrophils (%) (Auto) 66.2, Lymphocytes (%) (Auto) 23.2, Monocytes (%) (Auto) 7.3, Eosinophils (%) (Auto) 2.9, Basophils (%) (Auto) 0.2, Neutrophils # (Auto) 6.15, Lymphocytes # (Auto) 2.16, Monocytes # (Auto) 0.68, Eosinophils # (Auto) 0.27, Basophils # (Auto) 0.02 07/09/17 01:00 Test 07/09/17 01:00 07/09/17 01:05 07/09/17 01:19 White Blood Count 9.30 K/uL (4.8-10.8) Red Blood Count 4.23 M/uL (4.2-5.4) Hemoglobin 14.5 g/dL (12.0-16.0) Hematocrit 41.5 % (37-47) Mean Corpuscular Volume 98.1 fL (80-100) Mean Corpuscular Hemoglobin 34.3 pg (25-34) Mean Corpuscular Hemoglobin Concent 34.9 g/dl (32-36) Platelet Count 220 K/uL (130-400) Mean Platelet Volume 9.0 fL (7.4-10.4) Neutrophils (%) (Auto) 66.2 % Lymphocytes (%) (Auto) 23.2 % Monocytes (%) (Auto) 7.3 % Eosinophils (%) (Auto) 2.9 % Basophils (%) (Auto) 0.2 % Neutrophils # (Auto) 6.15 K/uL (1.4-6.5) Lymphocytes # (Auto) 2.16 K/uL (1.2-3.4) Monocytes # (Auto) 0.68 K/uL (0.11-0.59) Eosinophils # (Auto) 0.27 K/uL (0-0.5) Basophils # (Auto) 0.02 K/uL (0-0.2) RDW Standard Deviation 44.8 fL (36.4-46.3) RDW Coefficient of Variation 12.5 % (11.5-14.5) Immature Granulocyte % (Auto) 0.2 % Immature Granulocyte # (Auto) 0.02 K/uL (0.00-0.02) Anion Gap 6.0 mmol/L (3-11) Est Creatinine Clear Calc Drug Dose 47.6 ml/min Estimated GFR () 62.3 Estimated GFR (Non- 53.8 BUN/Creatinine Ratio 19.1 (10-20) Calcium Level 8.8 mg/dl (8.5-10.1) Total Bilirubin 0.3 mg/dl (0.2-1) Aspartate Amino Transf (AST/SGOT) 17 U/L (15-37) Alanine Aminotransferase (ALT/SGPT) 24 U/L (12-78) Alkaline Phosphatase 79 U/L (45-117) Total Protein 7.6 gm/dl (6.4-8.2) Albumin 3.6 gm/dl (3.4-5.0) Globulin 4.0 gm/dl (2.5-4.0) Albumin/Globulin Ratio 0.9 (0.9-2) Urine Color ORANGE Urine Appearance TURBID (CLEAR) Urine pH 5.5 (4.5-7.5) Urine Specific Plummer 1.031 (1.000-1.030) Urine Protein 2+ (NEG) Urine Glucose (UA) NEG (NEG) Urine Ketones TRACE (NEG) Urine Occult Blood 3+ (NEG) Urine Nitrite POS (NEG) Urine Bilirubin NEG (NEG) Urine Urobilinogen NEG (NEG) Urine Leukocyte Esterase LARGE (NEG) Urine WBC (Auto) >30 /hpf (0-5) Urine RBC (Auto) >30 /hpf (0-4) Urine Hyaline Casts (Auto) 0 /lpf (0-5) Urine Epithelial Cells (Auto) 10-20 /lpf (0-5) Urine Bacteria (Auto) 1+ (NEG) Urine Pathogenic Casts /lpf (0) Urine Yeast (Auto) (NONE PRSENT) Lactic Acid Level 1.2 mmol/L (0.4-2.0) Laboratory results per my review. Medications Administered Medications (Trade) Dose Ordered Sig/Lynda Route Start Time Stop Time Status Last Admin Dose Admin Sodium Chloride 1,000 ml @ 999 mls/hr Q1H1M STAT IV 07/09/17 00:49 07/09/17 01:49 DC 07/09/17 01:12 999 MLS/HR Ondansetron HCl (Zofran 8mg Iv) 8 mg NOW STAT IV 07/09/17 00:49 07/09/17 00:51 DC 07/09/17 01:23 8 MG Ceftriaxone Sodium (Rocephin Inj) 1 gm NOW STAT IV 07/09/17 01:42 07/09/17 01:43 DC 07/09/17 02:08 1 GM Ketorolac Tromethamine (Toradol Inj) 15 mg NOW STAT IV 07/09/17 02:21 07/09/17 02:22 DC 07/09/17 02:30 15 MG Phenazopyridine HCl (Pyridium Tab) 200 mg NOW STAT PO 07/09/17 02:57 07/09/17 02:58 DC 07/09/17 03:09 200 MG Phenazopyridine HCl (Phenazopyridine HCl 200MG Home Pack) 1 homepack UD ONCE PO 07/09/17 03:15 07/09/17 03:16 DC 07/09/17 03:19 1 HOMEPACK ED Course 0036: The patient was evaluated in room A12B. A complete history and physical exam was performed. 0049: Zofran 8 mg IV, NSS 1000 ml @ 999 mls/hr IV. 0142: Rocephin Inj 1 gm IV. 0221: Toradol Inj 15 mg IV. 0247: I reevaluated the patient. She is feeling better. I updated her on the results. 0257: Pyridium Tab 200 mg PO. 0312: Upon reevaluation, the patient is feeling better. I discussed the findings and the treatment plan with the patient. She verbalizes agreement and understanding. She was discharged home. 0315: Phenazopyridine HCl 1 homepack PO. Medical Decision Differential diagnosis: Etiologies such as renal colic, appendicitis, diverticulitis, mesenteric ischemia, aortic pathology, infections, inflammatory bowel disease, PUD, biliary pathology, UTI, pyelonephritis as well as others were entertained. Patient likely with a sending UTI, no evidence of fulminant pyelonephritis. No evidence of bacteremia/sepsis. Patient improved here following IV fluids, pain medications, did receive first dose of antibiotics to the IV. Labs and imaging otherwise reassuring. No evidence of additional obstructive pathology. Renal function normal. Discussed with patient use of antibiotics, close follow up with family doctor, symptoms to watch and return for, possible side effects of Pyridium, adequate water intake and hydration, she verbalized understanding of this was agreeable with plan. Patient well-appearing at time of discharge, with stable vital signs, tolerating by mouth. Medication Reconcilliation Current Medication List: was personally reviewed by me Blood Pressure Screening Patient's blood pressure: Elevated blood pressure Blood pressure disposition: Elevated BP felt to be situational Impression Primary Impression: UTI (urinary tract infection) Additional Impression: Nausea Scribe Attestation The scribe's documentation has been prepared under my direction and personally reviewed by me in its entirety. I confirm that the note above accurately reflects all work, treatment, procedures, and medical decision making performed by me. Departure Information Dispostion Home / Self-Care Prescriptions Sulfa/Trimethoprim (Bactrim Ds 800MG/160MG) Tab 1 TAB PO BID, #14 TAB Prov: Shira Ahn, DO 07/09/17 Referrals Anuel Guzman M.D. (PCP) Patient Instructions My [facility] Additional Instructions Please drink plenty of water. Please take the antibiotics as prescribed. You may use the pyridium as needed. Please follow-up with your family doctor. If you have any worsening pain, develop fevers, vomiting, or you have any other new concerns, please return to the emergency room. Problem Qualifiers Primary Impression: UTI (urinary tract infection) Urinary tract infection type: acute cystitis Hematuria presence: with hematuria Qualified Codes: N30.01 - Acute cystitis with hematuria
[2017-07-09] MEDS ORDERED: ONDANSETRON INJ 8 MG in DEXTROSE 5% 50ML 50 ML IV STA (00:57)
[2017-07-09] MEDS ORDERED: OPTIRAY 320 IV PRN (01:00)
[2017-07-09] MEDS ORDERED: BUPR-79 PO (01:15)
[2017-07-09 01:17] LABS: BASO % 0.2 %; BASO ABS # 0.02 K/uL (0-0.2); COMPLETE YES; EOS % 2.9 %; HEMATOCRIT 41.5 % (37-47); IG% 0.2 %; LYMPH % 23.2 %; LYMPH ABS # 2.16 K/uL (1.2-3.4); MEAN CELL VOLUME 98.1 fL (80-100); MEAN CORPUSCULAR HEMOGLOBIN 34.3 pg (25-34); MEAN CORPUSCULAR HGB CONC 34.9 g/dl (32-36); MONO % 7.3 %; NEUT % 66.2 %; PLATELET COUNT 220 K/uL (130-400); RED BLOOD COUNT 4.23 M/uL (4.2-5.4)
[2017-07-09 01:19] LABS: URINE APPEARANCE TURBID (CLEAR); URINE BILIRUBIN NEG (NEG); URINE COLOR ORANGE; URINE NITRITE POS (NEG); URINE PH 5.5 (4.5-7.5); URINE SPECIFIC GRAVITY 1.031 (1.000-1.030); UROBILINOGEN NEG (NEG); ZZUR CULT IF INDIC CLEAN CATCH YES
[2017-07-09 01:32] LABS: MANUAL MICROSCOPIC REQUIRED? NO; REVIEW REQ? YES
[2017-07-09] MEDS ORDERED: CEFTRIAXONE SOD INJ 1 GM ADDVIAL IV STA (01:42)
[2017-07-09 01:47] LABS: BUN/CREATININE RATIO 19.1 (10-20); CALCIUM 8.8 mg/dl (8.5-10.1); CREATININE 1.1 mg/dl (0.60-1.20); POTASSIUM 3.5 mmol/L (3.5-5.1)
[2017-07-09 01:49] LABS: ALB/GLOB RATIO 0.9 (0.9-2)
[2017-07-09] MEDS ORDERED: KETOROLAC TROMETHAMINE 30 MG/ML VIAL IV STA (02:21)
[2017-07-09] MEDS ORDERED: PHENAZOPYRIDINE HCL 200 MG TAB PO STA (02:57)
[2017-07-09] MEDS ORDERED: SULF800T23 PO (03:11)
[2017-07-09] MEDS ORDERED: PHENAZOPYRIDINE HOME PACK 200 MG VIAL PO ONE (03:15)
[2017-07-09 03:21] VITALS: BP 151/83; PULSE 80; O2SAT 100
--- NOTE | 2017-07-09 06:27 | DIAGNOSTIC IMAGING REPORT ---
ABD/PELVIS IV CONTRAST ONLY CT DOSE: 400.95 mGy.cm HISTORY: Pain back pain, uti TECHNIQUE: Multiaxial CT images of the abdomen and pelvis were performed following the use of intravenous contrast. A dose lowering technique was utilized adhering to the principles of ALARA. COMPARISON STUDY: 09/27/2012 FINDINGS: Lung bases are clear. Minimal atelectasis right base. Liver is uniform. Prior cholecystectomy. Pancreas is unremarkable throughout. Several pelvic cysts of the kidneys. No evidence for hydronephrosis. The bowel pattern is nonobstructive. Bladder is midline. Uterus is anteflexed. There is no free fluid within the pelvic cul-de-sac. Normal appendix. IMPRESSION: 1. Several pre-existing renal parapelvic and cortical cysts. 2. Otherwise negative study post cholecystectomy. The above report was generated using voice recognition software. It may contain grammatical, syntax or spelling errors. Electronically signed by: Waylon Escobar M.D. 07/09/2017 6:26 AM Dictated Date/Time: 07/09/2017 6:23 AM
== END 2017-07-09 03:27 | disposition home or self-care (01) ==
LOC: C.EDB 00:27 → C.EDA 03:27
DX: N30.01 Acute cystitis with hematuria (principal); R11.0 Nausea; F41.9 Anxiety disorder, unspecified; Z83.3 Family history of diabetes mellitus; Z80.9 Family history of malignant neoplasm, unspecified; Z83.79 Family history of other diseases of the digestive system; Z79.899 Other long term (current) drug therapy

== ENCOUNTER → 2017-10-08 | Outpatient (CLI) | payer OTHER ==
[~2017-10-08] MED LIST changes: +BUPR-79 PO; -BUPR150T7 PO; +SULF800T23 PO
--- NOTE | 2017-10-11 13:57 | MAMMOGRAPHY REPORT ---
BILATERAL DIGITAL SCREENING MAMMOGRAM TOMOSYNTHESIS WITH CAD: 10/08/2017 CLINICAL HISTORY: Routine screening. Patient has no complaints. TECHNIQUE: Breast tomosynthesis in addition to standard 2D mammography was performed. Current study was also evaluated with a Computer Aided Detection (CAD) system. COMPARISON: Comparison is made to exams dated: 10/07/2016 mammogram, 09/25/2015 mammogram, 09/19/2014 ma mmogram, 04/28/2012 mammogram, 04/20/2012 mammogram, and 03/27/2011 mammogram - [facility]. BREAST COMPOSITION: There are scattered areas of fibroglandular density in both breasts. FINDINGS: No suspicious masses, calcifications, or areas of architectural distortion are noted in ei ther breast. There has been no significant interval change compared to prior exams. Small mass withi n the left lower inner quadrant is decreased in size compared to the prior exam and is therefore aryan gn and likely represents a resolving cyst. IMPRESSION: ACR BI-RADS CATEGORY 2: BENIGN There is no mammographic evidence of malignancy. A 1 year screening mammogram is recommended. The pa tient will receive written notification of the results. Approximately 10% of breast cancers are not detected with mammography. A negative mammographic report should not delay biopsy if a clinically suggestive mass is present. Zahida Foster M.D. /:10/08/2017 16:13:28 Criminal Justice Lawyer: [place] RAMOS(R)(M), [facility] letter sent: Normal 1/2 BI-RADS Code: ACR BI-RADS Category 2: Benign
== END | disposition home or self-care (01) ==
LOC: C.MAMM 15:48
PROVIDERS: ATTEND Internal Medicine
DX: Z12.31 Encounter for screening mammogram for malignant neoplasm of breast (principal)

== ENCOUNTER → 2017-10-15 | Outpatient (CLI) | payer OTHER ==
[2017-10-15 12:42] LABS: HEMATOCRIT 41.1 % (37-47); HEMOGLOBIN 14.1 g/dL (12.0-16.0); MEAN CELL VOLUME 99.8 fL (80-100); MEAN CORPUSCULAR HEMOGLOBIN 34.2 pg (25-34); MEAN CORPUSCULAR HGB CONC 34.3 g/dl (32-36); MEAN PLATELET VOLUME 9.5 fL (7.4-10.4); PLATELET COUNT 236 K/uL (130-400); RED CELL DISTRIBUTION WIDTH CV 12.5 % (11.5-14.5); RED CELL DISTRIBUTION WIDTH SD 45.5 fL (36.4-46.3); WHITE BLOOD COUNT 4.39 K/uL (4.8-10.8)
[2017-10-15 13:06] LABS: ALBUMIN 3.5 gm/dl (3.4-5.0); ALT/SGPT 24 U/L (12-78); BLOOD UREA NITROGEN 22 mg/dl (7-18); CARBON DIOXIDE 28 mmol/L (21-32); CHOLESTEROL 222 mg/dl (0-200); CREATININE 0.85 mg/dl (0.60-1.20); GLUCOSE 92 mg/dl (70-99); POTASSIUM 4.6 mmol/L (3.5-5.1); SODIUM 141 mmol/L (136-145)
[2017-10-15 13:10] LABS: ALKALINE PHOSPHATASE 73 U/L (45-117); AST/SGOT 21 U/L (15-37); LDL CHOLESTEROL CALCULATED 142 mg/dl; TOTAL PROTEIN 7.1 gm/dl (6.4-8.2)
== END | disposition home or self-care (01) ==
LOC: C.LABBFT 07:44
PROVIDERS: ATTEND Nurse Practitioner
DX: I10 Essential (primary) hypertension (principal); Z13.6 Encounter for screening for cardiovascular disorders

== ENCOUNTER 2017-12-12 19:07 | Emergency (ER) | payer OTHER ==
[~2017-12-12] VITALS: Ht 154.9 cm; Wt 69.4 kg
[2017-12-12 19:12] VITALS: TEMP 36.8; Ht 154.9 cm; Wt 69.4 kg
[2017-12-12] MEDS ORDERED: KETOROLAC TROMETHAMINE 30 MG/ML VIAL IV STA (19:26)
[2017-12-12] MEDS ORDERED: GI COCKTAIL PO STA (19:26)
[2017-12-12] MEDS ORDERED: SODIUM CHLORIDE 0.9% 1000ML 1,000 ML IV STA (19:26)
[2017-12-12] MEDS ORDERED: LIDOCAINE HCL 2% VISC SOLN 20 ML UDC ONE (19:35)
[2017-12-12] MEDS ORDERED: ALUMINUM/MAGNESIUM SUSP 30 ML UDC ONE (19:35)
[2017-12-12 19:46] LABS: BASO % 0.2 %; BASO ABS # 0.01 K/uL (0-0.2); EOS % 4.2 %; EOS ABS # 0.26 K/uL (0-0.5); HEMATOCRIT 40.7 % (37-47); HEMOGLOBIN 14.9 g/dL (12.0-16.0); IG# 0.01 K/uL (0.00-0.02); LYMPH % 43.9 %; LYMPH ABS # 2.69 K/uL (1.2-3.4); MEAN CELL VOLUME 95.3 fL (80-100); MEAN CORPUSCULAR HEMOGLOBIN 34.9 pg (25-34); MEAN CORPUSCULAR HGB CONC 36.6 g/dl (32-36); MEAN PLATELET VOLUME 9.1 fL (7.4-10.4); MONO % 6.9 %; MONO ABS # 0.42 K/uL (0.11-0.59); NEUT % 44.6 %; NEUT ABS # 2.74 K/uL (1.4-6.5); PLATELET COUNT 218 K/uL (130-400); RED CELL DISTRIBUTION WIDTH CV 12.6 % (11.5-14.5); RED CELL DISTRIBUTION WIDTH SD 43.1 fL (36.4-46.3); WHITE BLOOD COUNT 6.13 K/uL (4.8-10.8)
[2017-12-12 20:08] LABS: ALBUMIN 3.8 gm/dl (3.4-5.0); ALKALINE PHOSPHATASE 77 U/L (45-117); ALT/SGPT 25 U/L (12-78); AST/SGOT 24 U/L (15-37); BLOOD UREA NITROGEN 12 mg/dl (7-18); CARBON DIOXIDE 27 mmol/L (21-32); GLUCOSE 97 mg/dl (70-99); LIPASE 122 U/L (73-393); POTASSIUM 3.3 mmol/L (3.5-5.1); SODIUM 140 mmol/L (136-145); TOTAL PROTEIN 7.5 gm/dl (6.4-8.2)
--- NOTE | 2017-12-12 20:21 | DIAGNOSTIC IMAGING REPORT ---
CHEST ONE VIEW PORTABLE HISTORY: Atypical Chest Pain COMPARISON: Chest 08/15/2016. FINDINGS: The lungs are clear. Cardiac silhouette is normal in size. No pleural effusions. No pneumothorax. IMPRESSION: No acute process. Electronically signed by: Dennis Carrillo M.D. 12/12/2017 8:20 PM Dictated Date/Time: 12/12/2017 8:19 PM
[2017-12-12] MEDS ORDERED: OPTIRAY 320 IV PRN (21:00)
--- NOTE | 2017-12-12 21:09 | DIAGNOSTIC IMAGING REPORT ---
CHEST CT WITH CONTRAST CT DOSE: 220.39 mGy.cm HISTORY: severe pain w/ swallowing TECHNIQUE: Multiaxial CT images of the chest were performed following the intravenous administration of contrast. A dose lowering technique was utilized adhering to the principles of ALARA. COMPARISON: Chest CT 06/11/2007. FINDINGS: Patchy groundglass densities at the lung bases. This favors mild dependent change/atelectasis. Otherwise, the lungs are clear. Cholecystectomy. Left renal peripelvic cysts are again noted. A 1.4 cm cyst within the upper pole the left kidney. A few subcentimeter thyroid nodules with the largest on the right measuring 7 mm. The esophagus normal in course and caliber. The heart is normal in size. No evidence for an aortic dissection. The main pulmonary arteries are patent. No mediastinal or hilar lymphadenopathy. No pleural effusion or pneumothorax. Limited views of the upper abdomen demonstrate a normal liver and spleen. IMPRESSION: No significant abnormality identified within the chest. Additional findings as described above. Electronically signed by: Dennis Carrillo M.D. 12/12/2017 9:07 PM Dictated Date/Time: 12/12/2017 9:02 PM
[2017-12-12 21:45] VITALS: BP 134/83; PULSE 75; O2SAT 98
--- NOTE | 2017-12-12 22:26 | EMERGENCY ROOM VISIT NOTE ---
History Report prepared by Martinibmariano: Ofelia Gaytan Under the Supervision of: Dr. Jeremiah Santizo D.O. First contact with patient: 19:16 Chief Complaint: CHEST PAIN Stated Complaint: CHEST PAINS, FOOD CAUGHT IN THROAT History of Present Illness The patient is a 62 year old female who presents to the Emergency Room with complaints of persistent chest pain for the past 1 hour [employer]. She states the pain started while she was eating dinner. She began to have a difficult time swallowing while eating dinner, and states "it really hurt" while she was trying to swallow. She rates her pain as a 10/10 in severity. She vomited several times after eating dinner and was dry heaving in ED triage. She also complains of back pain and a headache. Her states she has experienced similar symptoms a few times a month for at least the past 10 years. The patient believes she followed up with GI several years ago but cannot remember who she saw. Pt denies change in vision, fevers, shortness of breath, abdominal pain, diarrhea, pain with urination, and melena. Source of History: patient Onset: 1 hour [employer] Position: chest Symptom Intensity: 10/10 Timing: other (persistent) Associated Symptoms: + headache, + nausea, + vomiting, + back pain, No fevers, No SOB, No abdominal pain, No melena, No diarrhea, No urinary symptoms Review of Systems See HPI for pertinent positives & negatives. A total of 10 systems reviewed and were otherwise negative. Past Medical & Surgical Medical Problems: (1) Anxiety disorder (2) Bilateral tubal ligation (3) History of cholecystectomy (4) Moderate recurrent major depression (5) Tonsillectomy Surgical Problems: (1) Hx of cholecystectomy (2) Hx of foot surgery Family History Diabetes mellitus FHx: cancer FHx: gallbladder disease Social History Smoking Status: Never Smoker Alcohol Use: occasionally Drug Use: none Marital Status: Housing Status: lives with family Occupation Status: employed Current/Historical Medications Scheduled Bupropion (Wellbutrin Sr), 300 MG PO DAILY Valsartan/Hctz (Diovan Hct), 1 TAB PO QAM Scheduled PRN Lorazepam (Ativan), 1 MG PO TID PRN for Anxiety Allergies Coded Allergies: Erythromycin (Verified Allergy, Mild, RASH, 12/12/17) Penicillins (Verified Allergy, Mild, RASH, 12/12/17) Cantaloupe (Verified Allergy, Unknown, THROAT SWELLING, 12/12/17) Physical Exam Vital Signs Date Time Temp Pulse Resp B/P (MAP) Pulse Ox O2 Delivery O2 Flow Rate FiO2 12/12/17 21:45 75 20 134/83 98 Room Air 12/12/17 20:32 74 22 136/73 96 Room Air 12/12/17 19:56 83 14 143/76 Room Air 12/12/17 19:51 80 12/12/17 19:46 97 Room Air 12/12/17 19:31 87 14 142/87 97 Room Air 12/12/17 19:12 36.8 91 18 157/93 97 Room Air Physical Exam GENERAL: Sitting up in bed, alert, in moderate distress holding chest, well nourished, non-toxic EYE EXAM: normal conjunctiva. OROPHARYNX: no exudate, no erythema, lips, buccal mucosa, and tongue normal and mucous membranes are moist NECK: supple, no nuchal rigidity, no adenopathy, non-tender LUNGS: Clear to auscultation. Normal chest wall mechanics HEART: no murmurs, S1 normal and S2 normal ABDOMEN: abdomen soft, non-tender, normo-active bowel sounds, no masses, no rebound or guarding. BACK: Back is symmetrical on inspection and there is no deformity, no midline tenderness, no CVA tenderness. SKIN: no rashes and no bruising UPPER EXTREMITIES: upper extremities are grossly normal. LOWER EXTREMITIES: No pitting edema. Calves are equal bilaterally. NEURO EXAM: Normal sensorium, cranial nerves II-XII grossly intact, normal speech, no gross weakness of arms, no gross weakness of legs. Gross sensation intact. Medical Decision & Procedures ER Provider Diagnostic Interpretation: Radiology results as stated below per my review and the radiologist's interpretation: CHEST ONE VIEW PORTABLE HISTORY: Atypical Chest Pain COMPARISON: Chest 08/15/2016. FINDINGS: The lungs are clear. Cardiac silhouette is normal in size. No pleural effusions. No pneumothorax. IMPRESSION: No acute process. Electronically signed by: Dennis Carrillo M.D. 12/12/2017 8:[address] WITH CONTRAST CT DOSE: 220.39 mGy.cm HISTORY: severe pain w/ swallowing TECHNIQUE: Multiaxial CT images of the chest were performed following the intravenous administration of contrast. A dose lowering technique was utilized adhering to the principles of ALARA. COMPARISON: Chest CT 06/11/2007. FINDINGS: Patchy groundglass densities at the lung bases. This favors mild dependent change/atelectasis. Otherwise, the lungs are clear. Cholecystectomy. Left renal peripelvic cysts are again noted. A 1.4 cm cyst within the upper pole the left kidney. A few subcentimeter thyroid nodules with the largest on the right measuring 7 mm. The esophagus normal in course and caliber. The heart is normal in size. No evidence for an aortic dissection. The main pulmonary arteries are patent. No mediastinal or hilar lymphadenopathy. No pleural effusion or pneumothorax. Limited views of the upper abdomen demonstrate a normal liver and spleen. IMPRESSION: No significant abnormality identified within the chest. Additional findings as described above. Electronically signed by: Dennis Carrillo M.D. 12/12/2017 9:07 PM Laboratory Results 12/12/17 19:35 Red Blood Count 4.27, Mean Corpuscular Volume 95.3, Mean Corpuscular Hemoglobin 34.9, Mean Corpuscular Hemoglobin Concent 36.6, Mean Platelet Volume 9.1, Neutrophils (%) (Auto) 44.6, Lymphocytes (%) (Auto) 43.9, Monocytes (%) (Auto) 6.9, Eosinophils (%) (Auto) 4.2, Basophils (%) (Auto) 0.2, Neutrophils # (Auto) 2.74, Lymphocytes # (Auto) 2.69, Monocytes # (Auto) 0.42, Eosinophils # (Auto) 0.26, Basophils # (Auto) 0.01 12/12/17 19:35 Test 12/12/17 19:35 White Blood Count 6.13 K/uL (4.8-10.8) Red Blood Count 4.27 M/uL (4.2-5.4) Hemoglobin 14.9 g/dL (12.0-16.0) Hematocrit 40.7 % (37-47) Mean Corpuscular Volume 95.3 fL (80-100) Mean Corpuscular Hemoglobin 34.9 pg (25-34) Mean Corpuscular Hemoglobin Concent 36.6 g/dl (32-36) Platelet Count 218 K/uL (130-400) Mean Platelet Volume 9.1 fL (7.4-10.4) Neutrophils (%) (Auto) 44.6 % Lymphocytes (%) (Auto) 43.9 % Monocytes (%) (Auto) 6.9 % Eosinophils (%) (Auto) 4.2 % Basophils (%) (Auto) 0.2 % Neutrophils # (Auto) 2.74 K/uL (1.4-6.5) Lymphocytes # (Auto) 2.69 K/uL (1.2-3.4) Monocytes # (Auto) 0.42 K/uL (0.11-0.59) Eosinophils # (Auto) 0.26 K/uL (0-0.5) Basophils # (Auto) 0.01 K/uL (0-0.2) RDW Standard Deviation 43.1 fL (36.4-46.3) RDW Coefficient of Variation 12.6 % (11.5-14.5) Immature Granulocyte % (Auto) 0.2 % Immature Granulocyte # (Auto) 0.01 K/uL (0.00-0.02) Anion Gap 7.0 mmol/L (3-11) Est Creatinine Clear Calc Drug Dose 51.3 ml/min Estimated GFR () 69.4 Estimated GFR (Non- 59.9 BUN/Creatinine Ratio 12.4 (10-20) Calcium Level 9.0 mg/dl (8.5-10.1) Total Bilirubin 0.5 mg/dl (0.2-1) Direct Bilirubin 0.1 mg/dl (0-0.2) Aspartate Amino Transf (AST/SGOT) 24 U/L (15-37) Alanine Aminotransferase (ALT/SGPT) 25 U/L (12-78) Alkaline Phosphatase 77 U/L (45-117) Troponin I < 0.015 ng/ml (0-0.045) Total Protein 7.5 gm/dl (6.4-8.2) Albumin 3.8 gm/dl (3.4-5.0) Lipase 122 U/L (73-393) Laboratory results per my review. Medications Administered Medications (Trade) Dose Ordered Sig/Lynda Route Start Time Stop Time Status Last Admin Dose Admin Sodium Chloride 1,000 ml @ 999 mls/hr Q1H1M STAT IV 12/12/17 19:26 12/12/17 20:26 DC 12/12/17 19:38 999 MLS/HR Ketorolac Tromethamine (Toradol Inj) 30 mg NOW STAT IV 12/12/17 19:26 12/12/17 19:28 DC 12/12/17 19:37 30 MG Al Hydroxide/Mg Hydroxide (Maalox Susp) 30 ml STK-MED ONCE .ROUTE 12/12/17 19:35 12/12/17 19:36 DC 12/12/17 19:37 30 ML Lidocaine HCl (Viscous Lidocaine 2% Soln) 20 ml STK-MED ONCE .ROUTE 12/12/17 19:35 12/12/17 19:36 DC 12/12/17 19:37 20 ML ECG Per My Interpretation Indication: chest pain Rate (beats per minute): 80 Rhythm: sinus rhythm Findings: other (normal axis, no PVC) ED Course ED COURSE: Vital signs were reviewed and showed the patient is hypertensive The patients medical record was reviewed The above diagnostic studies were performed and reviewed. ED treatments and interventions as stated above. 1917: The patient was evaluated in room B10. A complete history and physical examination was performed. 1925: Toradol 30 mg IV, NSS 1000 ml @ 999 mls/hr IV. 1934: Lidocaine HCl 20 ml IM, Maalox Susp 30 ml PO. 2024: I reevaluated the patient. She is feeling better and states the GI cocktail has helped significantly. 2115: Upon reevaluation, the patient is feeling better and tolerating liquids. I discussed my findings with the patient and she understands and agrees with the treatment plan. Based on the patients age, coexisting illnesses, exam and lab findings the decision to treat as an outpatient was made. The patient remained stable while under my care. The patient appeared well at the time of discharge. Medical Decision Differential diagnoses includes but is not limited to acute coronary syndrome, myocardial infarction, pericarditis, pulmonary embolus, aortic dissection, pneumonia, pneumothorax, musculoskeletal, shingles, esophageal. Patient is a 62-year-old female who presents to ER who presented 1 hour ago following swallowing a piece of beef. She notes she fell to get stuck and started vomiting. Everything came back up. Patient notes that she gets this about 4 times a month for the past 10 years. She notes that she has mild chest pain after this occurring from vomiting and headache also. CBC along with BMP, LFTs, bilirubin, troponin lipase was unremarkable. EKG was unremarkable. CT of the chest was negative for any acute rupture or obvious foreign body. Chest x-ray unremarkable. Patient was given oral liquids and a GI cocktail. After GI cocktail she felt significant better. She was able to tolerate oral liquids and she was discharged follow-up with her PCP tomorrow and to follow-up with GI. She will stay away from dry foods. Discussed with Pt concerning signs and symptoms to watch out for. Pt was instructed to follow up with their PCP and discussed with the patient their option to return to the ED at anytime for persistent or worsening symptoms. The appropriate anticipatory guidance and out- patient management, including indications for return to the emergency department , were explained at length to the patient and understood. Medication Reconcilliation Current Medication List: was personally reviewed by me Blood Pressure Screening Patient's blood pressure: Elevated blood pressure Blood pressure disposition: Elevated BP felt to be situational Impression Primary Impression: Trouble swallowing Scribe Attestation The scribe's documentation has been prepared under my direction and personally reviewed by me in its entirety. I confirm that the note above accurately reflects all work, treatment, procedures, and medical decision making performed by me. Departure Information Dispostion Home / Self-Care Referrals Anuel Guzman M.D. (PCP) Patient Instructions ED Foreign Body Esophageal Rslv, My [facility] Additional Instructions Please follow up with your primary care doctor with in the next 24 hours. Any worsening of your symptoms, please return to the ED immediately. This includes any fevers greater than 100.4, worsening pain, chest pain, shortness breath, persistent nausea, vomiting, unable to eat or drink, or any other concerning signs or symptoms from your standpoint. Please make sure you follow-up with your PCP as stated above. Please follow-up with GI within the next 2 weeks. Please stay away from dry foods. Problem Qualifiers Primary Impression: Trouble swallowing Dysphagia type: unspecified Qualified Codes: R13.10 - Dysphagia, unspecified
== END 2017-12-12 21:58 | disposition home or self-care (01) ==
LOC: C.EDB 19:09
DX: R13.10 Dysphagia, unspecified (principal); Z90.49 Acquired absence of other specified parts of digestive tract; Z98.51 Tubal ligation status; Z90.89 Acquired absence of other organs; Z98.890 Other specified postprocedural states; Z83.3 Family history of diabetes mellitus; Z88.0 Allergy status to penicillin; Z88.1 Allergy status to other antibiotic agents; Z91.018 Allergy to other foods

== ENCOUNTER → 2018-03-15 | Outpatient (CLI) | payer OTHER ==
[~2018-03-15] MED LIST changes: -BUPR-79 PO; +BUPRTAB51 PO; -SULF800T23 PO
--- NOTE | 2018-03-15 14:36 | DIAGNOSTIC IMAGING REPORT ---
L PELVIS/UNILATERAL HIP 2-3VIEWS HISTORY: 62 years-old Female M25.552 Left hip pain acute pelvic and left-sided hip pain COMPARISON: Sacrum radiographs 01/19/2018 TECHNIQUE: AP view of the pelvis with 2 views of the left hip FINDINGS: Bones appear mildly demineralized. 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 No acute fracture or dislocation. Phleboliths of the pelvis. IMPRESSION: No acute fracture or dislocation. The above report was generated using voice recognition software. It may contain grammatical, syntax or spelling errors. Electronically signed by: Jonnie Thomas M.D. 03/15/2018 2:34 PM Dictated Date/Time: 03/15/2018 2:33 PM
== END | disposition home or self-care (01) ==
LOC: C.RAD1850 14:24
PROVIDERS: ATTEND Nurse Practitioner
DX: M25.552 Pain in left hip (principal)